=== PATIENT | female | born 1970 | race Caucasian/White ===

== ENCOUNTER → 2022-09-02 16:37 | Outpatient (CLI) | payer OTHER, SELFPAY ==
--- NOTE | 2022-09-02 16:40 | DI.MRI.S_ITS ---
PROCEDURE: MR ANKLE LT WO CON INDICATIONS: LEFT ANKLE PAIN TECHNIQUE: Noncontrast sagittal T1 spin echo and T2 fast spin echo with fat saturation, axial proton density fast spin echo and T2 fast spin echo with fat saturation, coronal T1 spin echo and T2 fast spin echo with fat saturation through the ankle/hindfoot. COMPARISON: None. FINDINGS: Image quality: Excellent. Bones and joints: No bone marrow contusions or fractures. No hindfoot coalitions. No osteochondral injuries of the talar dome. Small amount of tibiotalar joint effusion is seen, no gross loose bodies. Medial structures: The posterior tibialis, flexor digitorum longus, and flexor hallucis longus tendons are intact. The posterior tibial neurovascular bundle appears normal within the tarsal tunnel, without extrinsic mass effect. The deltoid ligament and spring ligament are mildly thickened. Lateral structures: The anterior talofibular, calcaneofibular, and posterior talofibular ligaments appear intact. More superiorly, the anterior and posterior tibiofibular ligaments are mildly thickened with intrasubstance T2 hyperintense signal. The tibiofibular syndesmosis is normal in width at 2 mm or less. The peroneus longus and brevis tendons are mildly thickened with small amount of fluid distending tendon sheath at the level of lateral malleolus tip extending to the level of calcaneocuboid joint. Adjacent bony peroneal tubercle and retrotrochlear prominence are normal in size. The sinus tarsi demonstrates normal fatty signal, without edema, fibrosis, or cyst formation. Visualized sinus tarsi components (cervical ligament, interosseous talocalcaneal ligament, roots of the inferior extensor retinaculum) appear normal. The calcaneonavicular and calcaneocuboid components of the bifurcate ligament appear intact. The dorsal calcaneocuboid ligament appears intact. Anterior structures: The tibialis anterior, extensor hallucis longus, and extensor digitorum longus tendons appear intact. The dorsal talonavicular ligament appears intact. Posterior and plantar structures: Markedly thickened distal Achilles tendon at its posterior calcaneal insertion is seen with intrasubstance T2 hyperintense signal and adjacent soft tissue edema. Medial and lateral bands of the plantar fascia are of normal thickness. No abductor digiti quinti muscle atrophy to suggest [place] neuropathy. IMPRESSION: 1. Low-grade medial ankle ligament sprain. Low-grade intrasubstance partial-thickness tear involving anterior and posterior tibial fibular ligaments. No full-thickness ankle ligament rupture. 2. No marrow edema. No fracture or dislocation. Small amount of tibiotalar joint effusion, no gross loose bodies. 3. Low-grade tenosynovitis involving peroneus tendons as above. 4. Distal Achilles tendinosis and low-grade partial-thickness tear at its posterior calcaneal insertion. No full-thickness Achilles tendon rupture. The plantar fascia is intact. Dictated by: Ray Hennessy M.D. on 09/03/2022 at 9:19 Approved by: Ray Hennessy M.D. on 09/03/2022 at 9:44
== END ==
PROVIDERS: PCP Physician Assistant; Referring Provider Orthopaedic Surgery Foot and Ankle Surgery; Visit Provider Orthopaedic Surgery Foot and Ankle Surgery
DX: S93.492A Sprain of other ligament of left ankle, initial encounter (principal); S86.012A Strain of left Achilles tendon, initial encounter; M65.872 Other synovitis and tenosynovitis, left ankle and foot; M67.88 Other specified disorders of synovium and tendon, other site
CPT/HCPCS: 73721

== ENCOUNTER 2024-09-19 13:49 | Emergency (ER) | payer OTHER, SELFPAY ==
[2024-09-19 14:07] VITALS: BP 167/97; PULSE 85; RESP 16; TEMP 36.9; O2SAT 98; BMI 39.5
--- NOTE | 2024-09-19 15:49 | ED.SKABFB ---
HPI - Skin/Abscess/Foreign Bdy <Rhett Adkins PA-C - Last Filed: 09/19/24 17:08> General Chief complaint: Skin/Abscess/Foreign Body Stated complaint: insect bite Rt arm and leg - redness Time Seen by Provider: 09/19/24 14:27 Source: patient Mode of arrival: Ambulatory Limitations: no limitations History of Present Illness HPI narrative: 53-year-old female presents to the ED with some insect bites that appear to be itchy as well as infected. Patient is unsure what insect she was bitten by, however she has multiple itchy, slightly tender, oozing spots on the right forearm as well as right thigh. Patient endorses seeing some discharge oozing from the lesion on the forearm. No fever, chills, nausea, vomiting, chest pain, shortness of breath. Related Data Previous Rx's Medication Instructions Recorded cephalexin 500 mg capsule 500 mg PO QID 5 days #20 caps 09/19/24 sulfamethoxazole 800 1 tab PO Q12H 5 days #10 tabs 09/19/24 mg-trimethoprim 160 mg tablet (Bactrim DS) triamcinolone acetonide 0.025 % 1 applic topical BID #15 grams 09/19/24 topical cream Allergies Allergy/AdvReac Type Severity Reaction Status Date / Time No Known Drug Allergies Allergy Verified 09/19/24 14:07 Review of Systems <Rhett Adkins PA-C - Last Filed: 09/19/24 17:08> Constitutional Constitutional: Denies chills, Denies fatigue, Denies fever(s), Denies frequent falls, Denies lethargy and Denies weakness Eyes Eyes: Denies change in vision, Denies eye discharge, Denies irritation and Denies loss of vision ENT Ears, Nose, Mouth, and Throat: Denies change in voice, Denies dizziness, Denies neck pain, Denies sore throat and Denies throat swelling Cardiovascular Cardiovascular: Denies chest pain, Denies irregular heart rhythm, Denies lightheadedness, Denies palpitations, Denies dyspnea, Denies dyspnea on exertion and Denies orthopnea Respiratory Respiratory: Denies cough, Denies dyspnea, Denies dyspnea on exertion and Denies wheezing Gastrointestinal Gastrointestinal: Denies abdominal pain, Denies change in bowel habits, Denies diarrhea, Denies nausea and Denies vomiting Musculoskeletal Musculoskeletal: Denies neck pain and Denies numbness Integumentary/Breasts Skin/Breast: Reports pruritus, Reports erythema, Denies rash and Reports wounds Neurologic Neurologic: Denies behavioral changes, Denies confusion, Denies dizziness, Denies frequent falls, Denies loss of vision, Denies numbness and Denies weakness Psychiatric Psychiatric: Denies anxiety, Denies behavioral changes, Denies confusion, Denies depression, Denies homicidal ideation and Denies suicidal ideation Endocrine Endocrine: Denies fatigue, Denies flushing and Denies palpitations Hematologic/Lymphatic Hematologic/Lymphatic: Denies easy bruising Allergic/Immunologic Allergic/Immunologic: Denies urticaria, Denies throat swelling and Denies wheezing Patient History <Rhett Adkins PA-C - Last Filed: 09/19/24 17:08> Social History Smoking Status: Never smoker Smoking Status: Never smoker Exam <Rhett Adkins PA-C - Last Filed: 09/19/24 17:08> Narrative Exam Narrative: Const General:?cooperative, healthy appearing and comfortable [facility] Head:?normal to inspection Ears:?hearing grossly normal bilaterally Nose:?external nose normal Face and sinus:?normal facial exam and sinuses nontender Mouth:?oral mucosae normal Throat:?posterior oropharynx normal Eyes General:?appearance normal, both eyes and all related structures Neck Neck:?normal visual inspection and no lymphadenopathy noted Resp Effort & Inspection:?normal respiratory effort Auscultation:?clear to auscultation bilaterally Cardio Rate:?regular rate Rhythm:?regular rhythm Integumentary There is 1 lesion on the right forearm, multiple lesions on the right thigh. Lesions are erythematous, discrete, itchy, have overlying erythema. Lesion on the forearm appears to have some discharge. Neuro General:?patient alert, patient awake and patient oriented x3 Initial Vital Signs Initial Vital Signs: Vital Signs Temperature 98.5 F 09/19/24 14:07 Pulse Rate 85 09/19/24 14:07 Respiratory Rate 16 09/19/24 14:07 Blood Pressure 167/97 H 09/19/24 14:07 Pulse Oximetry 98 09/19/24 14:07 Oxygen Delivery Method Room Air 09/19/24 14:07 <Brandee Ash MD - Last Filed: 09/19/24 18:39> Initial Vital Signs Initial Vital Signs: Vital Signs Temperature 98.5 F 09/19/24 14:07 Pulse Rate 85 09/19/24 14:07 Respiratory Rate 16 09/19/24 14:07 Blood Pressure 167/97 H 09/19/24 14:07 Pulse Oximetry 98 09/19/24 14:07 Oxygen Delivery Method Room Air 09/19/24 14:07 Course <Rhett Adkins PA-C - Last Filed: 09/19/24 17:08> Orders Ordered: Discontinued Medications Diphtheria/Tetanus/Acell Pertussis (Tet,Diph,Pertuss(Acell),Vac/Pf 0.5 Ml Syringe) 0.5 ml IM .ONCE ONE Stop: 09/19/24 16:08 Last Admin: 09/19/24 16:28 Dose: 0.5 ml Documented By: AHSAN Vital Signs Vital signs: Vital Signs - 8 hr 09/19/24 14:07 09/19/24 16:30 Temperature 98.5 F 98.1 F Pulse Rate 85 83 Respiratory Rate 16 19 Blood Pressure 167/97 H 181/94 H Pulse Oximetry 98 96 Oxygen Delivery Method Room Air Room Air <Brandee Ash MD - Last Filed: 09/19/24 18:39> Orders Ordered: Discontinued Medications Diphtheria/Tetanus/Acell Pertussis (Tet,Diph,Pertuss(Acell),Vac/Pf 0.5 Ml Syringe) 0.5 ml IM .ONCE ONE Stop: 09/19/24 16:08 Last Admin: 09/19/24 16:28 Dose: 0.5 ml Documented By: KW Vital Signs Vital signs: Vital Signs - 8 hr 09/19/24 14:07 09/19/24 16:30 Temperature 98.5 F 98.1 F Pulse Rate 85 83 Respiratory Rate 16 19 Blood Pressure 167/97 H 181/94 H Pulse Oximetry 98 96 Oxygen Delivery Method Room Air Room Air MDM - Skin/Abscess/Foreign Bdy <Rhett Adkins PA-C - Last Filed: 09/19/24 17:08> MDM Narrative Medical decision making narrative: 53-year-old female presents to the ED with some insect bites that appear to be itchy as well as infected. Physical exam is consistent with an allergic reaction versus cellulitis from the insect bites. Prescribed antibiotics, steroid ointment. Recommend taking Zyrtec or Benadryl if itching continues to be a problem. Recommend follow-up with PCP as soon as possible. ED return precautions discussed with patient. Patient verbalized understanding. Medical records reviewed: Yes Discharge Plan Departure Patient Disposition: Home Clinical Impression: Cellulitis Qualifiers: Site of cellulitis: extremity Site of cellulitis of extremity: lower extremity Laterality: right Qualified Code(s): L03.115 - Cellulitis of right lower limb Instructions: DI for Cellulitis -- Adult Activity Restrictions/Additional Instructions: You were evaluated in the ED today for some insect bites. It appears that you might be having an allergic reaction as well as an infection. You are being prescribed antibiotics as well as a steroid cream. Please follow-up with your PCP as soon as possible. Return to the ED if you have worsening symptoms. Prescriptions: New sulfamethoxazole-trimethoprim [Bactrim DS] 800-160 mg tablet 1 tab PO Q12H 5 Days Qty: 10 0RF cephalexin 500 mg capsule 500 mg PO QID 5 Days Qty: 20 0RF triamcinolone acetonide 0.025 % cream 1 applic topical BID Qty: 15 0RF Referrals: Elise Claros PA-C [Primary Care Provider] - Stand Alone Forms: Patient Portal/API/Survey ED Sign-out <Brandee Ash MD - Last Filed: 09/19/24 18:39> Cosign ED Attending Celine Attestation: I was immediately available in the department for consultation throughout this patient's visit. Brandee Ash MD
--- NOTE | 2024-09-19 16:11 | PC.NURSE ---
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 One welt with some redness and dried puss on her right arm. 3-4 red raised bites on the back of her right leg (quad).
[2024-09-19] MEDS: TET,DIPH,PERTUSS(ACELL),VAC/PF 0.5 ML SYRINGE IM (16:28)
[2024-09-19 16:30] VITALS: BP 181/94; PULSE 83; RESP 19; TEMP 36.7; O2SAT 96
== END 2024-09-19 16:33 | disposition home or self-care (01) ==
PROVIDERS: Emergency Provider Student in an Organized Health Care Education/Training Program; PCP Physician Assistant
DX: L03.115 Cellulitis of right lower limb (principal); Z23 Encounter for immunization
CPT/HCPCS: 90471; 99283; 90715